=== PATIENT | female | born 1975 | race Caucasian/White ===

== ENCOUNTER 2021-03-12 06:42 | Day surgery (SDC) | payer OTHER ==
[~2021-03-12] VITALS: Ht 165.1 cm; Wt 78.9 kg
[~2021-03-12 06:42] MED LIST: ALLEGRA PO; TRAZ50 PO
[2021-03-12] MEDS ORDERED: Amoxicillin500 MG PO (07:12)
--- NOTE | 2021-03-12 07:15 | NUR ---
03/12/21 0715 Lynette Fitzgerald PATIENT TOOK CHAVEZ TAB FOR PREP
== END 2021-03-12 09:15 | disposition home or self-care (01) ==
LOC: ORSCSDS 06:42
PROVIDERS: Surgery
PROC: 0DBP8ZX Excision of Rectum, Via Natural or Artificial Opening Endoscopic, Diagnostic (ICD-10-PCS; principal; 2021-03-12 08:00)
PROC: 0DBL8ZX Excision of Transverse Colon, Via Natural or Artificial Opening Endoscopic, Diagnostic (ICD-10-PCS; principal; 2021-03-12 08:00)
DX: Z12.11 Encounter for screening for malignant neoplasm of colon (principal); Z80.0 Family history of malignant neoplasm of digestive organs; D12.3 Benign neoplasm of transverse colon; D12.8 Benign neoplasm of rectum; Z79.899 Other long term (current) drug therapy
CPT/HCPCS: 88305; J2704; J7120

== ENCOUNTER → 2023-09-14 | Outpatient (CLI) | payer OTHER ==
[~2023-09-14] MED LIST changes: +Amoxicillin500 MG PO
[2023-09-14 13:50] LABS: Source, Urine Clean Catch
[2023-09-14 15:43] LABS: Appearance, Urine Clear (Clear); Bilirubin, Urine Neg (Neg); Blood, Urine 1+ (Neg); Color, Urine Yellow (P-Yellow); Glucose Qualitative, Urine Neg (Neg); Ketones, Urine Neg (Neg); Leukocyte Esterase, Urine Neg (Neg); Nitrite, Urine Neg (Neg); Protein, Urine 1+ (Neg); Specific Gravity, Urine 1.025 (1.003-1.022); Urobilinogen, Urine NORM (Normal)
[2023-09-14 15:56] LABS: Calcium Oxalate Crystals Few /hpf
[2023-09-14 15:57] LABS: Bacteria Mod /hpf; Red Blood Cells, Urine 0-2 /hpf (0-2); Squamous Epithelial Cells Not Seen /hpf (Few)
== END ==
LOC: LAB SHORT 13:45 → LAB 13:45
PROVIDERS: Obstetrics & Gynecology
DX: R30.0 Dysuria (principal)
CPT/HCPCS: 81001; 87077; 87086; 87186

== ENCOUNTER → 2024-02-16 | Outpatient (CLI) | payer OTHER ==
[2024-02-16 18:36] LABS: Source, Urine Voided
[2024-02-16 19:48] LABS: Appearance, Urine Hazy (Clear); Bilirubin, Urine Neg (Neg); Blood, Urine 1+ (Neg); Color, Urine Yellow (P-Yellow); Glucose Qualitative, Urine Neg (Neg); Ketones, Urine 2+ (Neg); Leukocyte Esterase, Urine 1+ (Neg); Nitrite, Urine Neg (Neg); Protein, Urine 1+ (Neg); Urobilinogen, Urine NORM (Normal)
[2024-02-16 20:41] LABS: Calcium Oxalate Crystals Mod /hpf
[2024-02-16 20:42] LABS: Amorphous Light (0-Heavy); Bacteria Many /hpf; Mucus Light (0-Heavy); Red Blood Cells, Urine 0-2 /hpf (0-2); Squamous Epithelial Cells Mod /hpf (Few)
== END | disposition home or self-care (01) ==
LOC: LAB 18:31 → LAB SHORT 18:31
PROVIDERS: Obstetrics & Gynecology
DX: R35.0 Frequency of micturition (principal)
CPT/HCPCS: 81001; 87086

== ENCOUNTER → 2024-09-13 | Outpatient (CLI) | payer OTHER ==
[2024-09-18 13:18] LABS: HPV HIGH RISK BY TMA Not Detected; HPV SOURCE Vaginal
== END ==
LOC: LAB SHORT 13:16 → LAB 13:16
PROVIDERS: Obstetrics & Gynecology
DX: Z01.419 Encounter for gynecological examination (general) (routine) without abnormal findings (principal)
CPT/HCPCS: 87624; G0123